=== PATIENT | male | born 1980 | race Caucasian/White ===

== ENCOUNTER → 2016-05-18 | Outpatient (CLI) | payer BC ==
[2016-05-18 17:19] LABS: HEMATOCRIT 47.9 % (42.0-52.0); HEMOGLOBIN 16.9 g/dL (14.0-18.0); MEAN CORPUSCULAR HEMOGLOBIN 29.5 PG (27-31); MEAN CORPUSCULAR HGB CONC 35.3 g/dL (33-37); RDW COEFFICIENT OF VARIATION 12.3 % (11.5-14.5); RED BLOOD COUNT 5.72 10^6/uL (4.70-6.10); WHITE BLOOD COUNT 11.81 10^3/uL (4.8-10.8)
[2016-05-18 17:30] LABS: ASPARTATE AMINO TRANSFERASE 30 IU/L (21-57); BILIRUBIN,TOTAL 0.9 mg/dL (0.3-1.2); BLOOD UREA NITROGEN 10 mg/dL (7-22); CALCIUM 9.9 mg/dL (8.7-10.7); CHLORIDE 103 meq/L (98-112); EST GLOMERULAR FILTRATION > 60 (>60 ml/min/1.73m(2)); GLUCOSE 59 mg/dL (78-110); POTASSIUM 4.5 meq/L (3.8-5.2); SODIUM 140 meq/L (135-145)
[2016-05-18 17:32] LABS: HEMOGLOBIN A1C 8.86 % (4.2-6.0); MEAN BLOOD GLUCOSE (CALC) 209.038 mg/dL
[2016-05-18 18:24] LABS: LDL CHOLESTEROL,CALCULATED 67.6 mg/dL
== END ==
LOC: MOB LAB 15:15
PROVIDERS: ATTEND Family Medicine
DX: E11.9 Type 2 diabetes mellitus without complications (principal); Z79.4 Long term (current) use of insulin; E78.00 Pure hypercholesterolemia, unspecified; I10 Essential (primary) hypertension; F17.210 Nicotine dependence, cigarettes, uncomplicated
CPT/HCPCS: 36415; 80053; 80061; 83036; 85027

== ENCOUNTER → 2016-05-24 | Outpatient (CLI) | payer BC ==
--- NOTE | 2016-05-24 13:00 | DI ---
TESTICULAR ULTRASOUND, 05/24/2016 10:27 AM Clinical History: Inguinal pain. Previous Exam: None. Scans are performed through both scrotal sacs in multiple projections using the high resolution linea r array probe. Color doppler ultrasound was also performed. Additional scans through the right inguin al ring were performed with the situp maneuver. Both testicles and the epididymis are normal. There is no hypervascularity identified. There is a rem nant of the Mullerian duct on the superior aspect of the left testicle and this is a normal variant. There is no varicocele or hydrocele. Scans through the right inguinal rim show no evidence of a herni a. Reading: Normal bilateral testicular ultrasound.
== END ==
LOC: US 10:21
PROVIDERS: ATTEND Family Medicine
DX: R10.84 Generalized abdominal pain (principal); F17.210 Nicotine dependence, cigarettes, uncomplicated
CPT/HCPCS: 76870

== ENCOUNTER → 2016-06-07 | Outpatient (CLI) | payer BC ==
--- NOTE | 2016-06-07 12:52 | DI ---
US ABDOMEN LIMITED,06/07/2016 7:46 AM: Clinical History: Right upper quadrant abdominal pain. Previous Exam: None at this facility. Findings: Multiple grayscale and color Doppler sonographic images are obtained through the right upper quadrant , and demonstrate a normal-appearing liver. The gallbladder is also normal with the gallbladder wall measuring 3 mm. The common bile duct measured 4 mm. The right kidney measured 11.3 cm in length without hydronephrosis nor nephrolithiasis. The pancreas is not well seen. Impression: Normal right upper quadrant ultrasound.
== END ==
LOC: US 07:42
PROVIDERS: ATTEND Family Medicine
DX: R10.11 Right upper quadrant pain (principal); F17.210 Nicotine dependence, cigarettes, uncomplicated
CPT/HCPCS: 76705

== ENCOUNTER → 2016-06-29 | Outpatient (CLI) | payer BC ==
--- NOTE | 2016-06-29 10:06 | DI ---
CT ABDOMEN SCAN WITHOUT AND WITH IV CONTRAST, 06/29/2016 7:48 AM : Clinical History: Generalized abdominal pain. Previous Exam: None at this facility. Scans are performed from the lower lung bases through the liver and kidneys without and with IV contr ast. Sagittal and coronal images are generated. 75 ml of Isovue 300 was injected IV. Low density oral barium contrast (Volumen - low density CT enterography oral contrast) was administered for all phase s of the exam. The lung bases are clear. The liver is normal. The gallbladder is grossly normal. There is no abnorma lity of the spleen, pancreas, and adrenal glands. Both kidneys are normal in size, shape, position an d contour. There is no hydronephrosis or hydroureter. No renal or ureteral calculi are present. There are no abnormal retrocrural or periaortic nodes. There is no ascites. READING: Normal CT abdomen scan without and with IV contrast. CT PELVIS SCAN WITHOUT AND WITH IV CONTRAST, 06/29/2016 7:48 AM: Clinical History: See above. Previous Exam: None at this facility. Scans are performed from just superior to the umbilicus to the symphysis pubis without and with IV co ntrast. This is the same bolus of IV contrast used for the CT scans of the abdomen. Scans through the lower abdomen and pelvis show no masses or abnormal fluid collections. There is no adenopathy. The appendix is normal. The small bowel, terminal ileum, and ileocecal valve are intact. The colon is also normal. There is a small umbilical hernia through which only mesenteric fat has he rniated. READING: Normal CT scan of the pelvis.
== END ==
LOC: CT 07:43
PROVIDERS: ATTEND Family Medicine
DX: R10.84 Generalized abdominal pain (principal)
CPT/HCPCS: 74178

== ENCOUNTER 2016-08-30 07:34 | Day surgery (SDC) | payer BC ==
[~2016-08-30 07:34] MED LIST: BUPivacaine Inj 0.5% PF (5mg/ml) 10ml vial ONE; LIDOCAINE 2% 20 MG/ML - 20 ML VIAL ONE; LIDOCAINE W/ SODIUM BICARB 0.5 ML SYR ONE; Lactated Ringers 1,000 ML PRIMARY IV ONE; MIDAZOLAM 5 MG/1 ML ONE; fentaNYL Inj 100 MCG/2 ML VIAL ONE
[2016-08-30] MEDS ORDERED: ceFAZolin Inj 2gm (Premix) 50 ML IV ONE (08:27)
--- NOTE | 2016-08-30 08:29 | MINORPROC ---
Outpatient History & Physical Chief Complaint: Left inguinal hernia. Mass left forearm Present Illness: Patient has had a hernia that is slowly getting bigger and bothersome. This is left inguinal area. He has a has a masses growing on his right forearm. Most likely reps into lipoma Past History: Insulin-dependent diabetes History: General: WNL, HEENT: WNL, Respiratory: WNL, Cardiovascular: WNL, Genitourinary: ABN (left inguinal hernia), Musculoskeletal: ABN (normal left forearm), Endocrine: ABN (ABDs) Physical Exam: Head/Neck: WNL, Chest/Lungs: WNL, Heart: WNL, Genital: ABN (left inguinal hernia), Extremities: ABN (4 cm mass left forearm) Home Medications: Home Medications Medication Instructions Recorded Confirmed Type Aspirin [Aspirin Ec] 1 tab ORAL QD tab 02/17/12 08/30/16 History Lisinopril 1 tab ORAL QD tab 02/17/12 08/30/16 History Loratadine [Tavist Nd] 1 tab ORAL QD tab 02/17/12 08/30/16 History Omeprazole 1 cap ORAL QD capsule 02/17/12 08/30/16 History Metoprolol Tartrate 1 tab PO BID #30 tab 12/20/14 08/30/16 History Guaifenesin 1 tab PO Q4H PRN tab 07/27/16 08/30/16 History Insulin Aspart [Novolog Flexpen] 100 unit SUBCUT AC unit 07/27/16 08/30/16 History Insulin Glargine SoloStar Inj 28 unit SQ DAILY 07/27/16 08/30/16 History [Lantus Solostar Inj] Pravastatin Sodium [Pravachol] 1 tab PO DAILY tab 07/27/16 08/30/16 History Sertraline HCl 1.5 tab PO DAILY tab 07/27/16 08/30/16 History Ibuprofen 1 tab PO BID tab 08/10/16 08/30/16 History Multivitamin [Multivitamins] 1 each PO DAILY 08/30/16 08/30/16 History Allergies/Adverse Reactions: Allergies Allergy/AdvReac Type Severity Reaction Status Date / Time No Known Drug Allergies Allergy NOT Verified 08/30/16 07:49 APPLICABLE Impression / Plan: Left inguinal hernia Lipoma left forearm Patient have repair of left inguinal hernia and excision of the mass a left forearm Transfusion: Transfusion Not Anticipated Anesthesia Plans: Sedation ASA Class: Class 3 : Severe Systemic Disease Under Control
[2016-08-30] MEDS ORDERED: HYDROcodone-APAP 7.5 MG-325 MG TABLET PO PRN (08:30)
[2016-08-30] MEDS ORDERED: MORPHINE SULFATE 2 MG/1 ML IVP PRN (08:30)
[2016-08-30] MEDS ORDERED: MAGNESIUM 400 MG/5 ML - 30 ML (MILK OF MAGNESIA) PO PRN (08:30)
[2016-08-30] MEDS ORDERED: NORMAL SALINE 10 ML SYRINGE FLUSH IVP PRN (08:30)
[2016-08-30] MEDS ORDERED: BUPivacaine Inj 0.5% PF (5mg/ml) 10ml vial ONE (08:56)
[2016-08-30] MEDS ORDERED: BUPivacaine Liposome/PF (Exparel) Inj 20ml vial INFIL ONE ×2 (09:20→09:26)
[2016-08-30] MEDS ORDERED: KETOROLAC 30 MG/1 ML VIAL ONE (09:47)
--- NOTE | 2016-08-30 09:51 | GEN.OPNOTE ---
Operative Note Surgery Date: 08/30/16 Preoperative Diagnosis: Left inguinal hernia. Subcutaneous mass left forearm Postoperative Diagnosis: Left inguinal hernia. 4 x 7 cm subcutaneous mass in the groin. 3 x 5 cm subcutaneous mass left forearm Procedure: Left inguinal herniorrhaphy with Prolene mesh. Excision of the 5 x 3 cm subcutaneous mass left forearm. Excision of a 7 x 4 cm subcutaneous mass left groin Surgeon: Joesph Hylton MD Anesthesia Provider: Db Guzman CRNA Anesthesia Type: Local, MAC Estimated Blood Loss (mL): 5 Fluids: 2 g of Ancef given. 18 mL of 0.5 Marcaine and 2% Xylocaine 50-50 mixture. 20 mL of Exoprel. Sedation per anesthesia please see anesthesia notes in EMR Pathology: Lipoma the groin and arm sent for pathology Indications: Patient is a left inguinal hernia and a mass in the left forearm it measures approximate 4 cm Findings: Patient had a direct and indirect hernia the left groin. He had a 7 x 4 cm subcutaneous mass. He had a 5 x 3 cm mass in the left forearm Operative Summary: Patient is brought in operant. Placed supine position. Timeout performed per protocol. Prepped draped sterile fashion. Infiltrated 0.5 Marcaine 2% Xylocaine 50-50 mixture for local anesthetic did a regional block. After adequate hemostasis skin incisions made in the left groin. Hemostased and left cautery. Local anesthetic was infiltrated for effect. It is finally found a large subcutaneous mass that appeared to be a lipoma. I dissected this out with electrocautery. The mass is actually in the way of the hernia repair therefore did need to be removed. It measures 7 x 4 cm on the back table. Hemostasis with electrocautery. I then infiltrated local anesthetic beneath the aponeurosis of external oblique. Made an incision on Prilosec external oblique grasped with hemostats and then opened the external oblique through the external ring and then above the internal ring. Special attention is made not to eat injury the ilioinguinal nerve that was identified. Spermatic cord was dissected off the for the ilioinguinal can now using dissection. Deborah drain was placed around it. I then dissected out the cord lipoma and also a indirect hernia sac both from reduce. Patient did have a direct hernia defect. I cut a piece of Prolene mesh to appropriate size and shape. Sewn the inferior edge of the mesh to the shelving edge ilioinguinal ligament using 0 Prolene continuous running suture. Keyholed the mesh to reconstruct the internal ring. Tacked this down to the shelving edge of the ilioinguinal canal. Superior aspect the mesh was sewn to the transversalis fascia. The medial aspect of the mesh was shown to the rectus sheath. Hall drain was then removed. Closed the external oblique fascia using 200 linkages running suture. I then infiltrated 20 mL of Exoprel for postoperative control. Closed the Luiz's fascia 2-0 Vicryl simple sutures. Skin reapproximated using 4-0 Monocryl continues running subcutaneous suture. Steri-Strips applied sterile dressings applied. We then prepped draped the arm. Timeout performed. Infiltrated local anesthetic for effect. Made a vertical incision along the long axis of this arm. Then diet bluntly dissected out lipoma that measured 5 x 3 cm. Hemostased and left cautery. Wound closed with a running subcutaneous stitch with 4-0 Vicryl. Steri-Strips applied sterile dressings applied. All counts were correct. Patient transferred recovery room in stable condition.
[2016-08-30] MEDS ORDERED: MORPHINE SULFATE 2 MG/1 ML ONE (10:13)
[2016-08-30 12:33] VITALS: RESP 23; TEMP 98.6
== END 2016-08-30 11:33 | disposition home or self-care (01) ==
LOC: SDSC 07:34
PROVIDERS: ATTEND Surgery
DX: K40.90 Unilateral inguinal hernia, without obstruction or gangrene, not specified as recurrent (principal); D17.22 Benign lipomatous neoplasm of skin and subcutaneous tissue of left arm; D17.24 Benign lipomatous neoplasm of skin and subcutaneous tissue of left leg
CPT/HCPCS: 25071; 27337; 49505; C9290; J0690; J1885; J2704; J3010; J2001; J2250; J2270; J3490; J7120

== ENCOUNTER 2016-08-31 00:30 | Emergency (ER) | payer BC ==
--- NOTE | 2016-08-31 01:01 | PDOC ---
Gen Adult / Medical Screen HPI - General Chief Complaint: General Medical Stated Complaint: pain to surgical site s/p inguinal hernia repair Date Seen by Provider: 08/31/16 Time Seen by Provider: 00:56 Source: POSITIVE: Patient Exam Limitations: POSITIVE: No limitations - History of Present Illness Initial Comments: Patient is a 36-year-old male who presents to the emergency department for postoperative pain. Patient had a left inguinal hernia, open, that was performed within 12 hours. Patient indicated this evening he got up to the bathroom and felt some dizziness and nauseousness. Patient did have pain at that site. Somewhat better when he laid down. Seemed to worsen he stands up and moves. Located in the left groin. No radiation. Moderate overall severity. Patient is a Diabetic he checked his blood sugar that was within normal limits. - Patient Home Medications Home Medications: Home Medications Aspirin [Aspirin EC] 1 tab ORAL QD tab 02/17/12 Lisinopril 1 tab ORAL QD tab 02/17/12 Loratadine [Tavist Nd] 1 tab ORAL QD tab 02/17/12 Omeprazole 1 cap ORAL QD capsule 02/17/12 Metoprolol Tartrate 1 tab PO BID #30 tab 12/20/14 Guaifenesin 1 tab PO Q4H PRN tab 07/27/16 Insulin Aspart [Novolog Flexpen] 100 unit SUBCUT AC unit 07/27/16 Insulin Glargine SoloStar Inj [Lantus SoloStar Inj] 28 unit SQ DAILY 07/27/16 Pravastatin Sodium [Pravachol] 1 tab PO DAILY tab 07/27/16 Sertraline HCl 1.5 tab PO DAILY tab 07/27/16 Ibuprofen 1 tab PO BID tab 08/10/16 HYDROcodone/APAP 7.5/325 Tab [[place] 7.5/325 Tab] 1 - 2 tab PO Q4H PRN #30 tab 08/30/16 Multivitamin [Multivitamins] 1 each PO DAILY 08/30/16 - Patient Allergies Allergies/Adverse Reactions: Allergies Allergy/AdvReac Type Severity Reaction Status Date / Time No Known Drug Allergies Allergy NOT Verified 08/31/16 00:48 APPLICABLE Past Medical History - heen HEENT History: Denies History Additional HEENT History: SINUS INFECTIONS Cardiovascular History: Hypertension Respiratory History: Denies History Gastrointestinal History: GERD Genitourinary History: Denies History Endocrine History: Type 1 Diabetes Musculoskeletal History: Denies History, Joint Pain Prosthesis or Implant: No Additional Musculoskeletal History: NECK PAIN Neurological History: Denies History Blood Disorders: Denies History Psychiatric History: Depression, PTSD History of Sexually Transmitted Diseases: No Cancer History: Denies History History of MDRO: No History of Other Communicable Diseases: Yes (VARICELLA) Alcohol Use: Rarely Substance Use Type: None Previous Surgical History: Yes Type / Date of Surgery: TONSILLECTOMY/EAR TUBES INFANT. Left open inguinal hernia repair. Anesthesia Reactions: No Malignant Hyperthermia: No Significant Family History: Cancer, Hypertension Past Medical History Reviewed: Reviewed - Changes Made ROS - Limitations ROS Limitations: No Limitations Constitution: REPORTS: Denies Symptoms Cardiovascular: REPORTS: Denies Cardiac Symptoms Respiratory: REPORTS: Denies Resp Symptoms Neurological: REPORTS: Denies Neuro Symptoms Gastrointestinal: REPORTS: Abdominal Pain, Nausea Endocrine: REPORTS: Denies Symptoms Musculoskeletal: REPORTS: Denies MS Symptoms Genitourinary: REPORTS: Denies Symptoms Eyes: REPORTS: Denies Symptoms ENT: REPORTS: Denies Symptoms Skin: REPORTS: Denies Skin Symptoms Lympathic: REPORTS: Denies Lympathic Symptoms Gen Adult/Medical Screen Exam - General Appearance General Appearance: POSITIVE: Alert, Cooperative, No Acute Distress - HEENT HEENT: POSITIVE: Head Inspection Nml, Oral/Dental Inspect. Nml - Pupils Pupil Size: 4 mm: Bilateral - Neck Neck: POSITIVE: Normal Inspection - Respiratory Respiratory: POSITIVE: No Respiratory Distress - Cardiovascular Cardiovascular: POSITIVE: Regular Rate & Rhythm, No Murmur, No Gallop - Abdomen Additional Abdominal Details: No tenderness to palpation of the abdomen. In the left inguinal region there is a surgical incision. The wound is clean and dry and intact. Steri-Strips are intact. No mass or significant swelling. Mild postoperative bruising. - Skin Skin: POSITIVE: Warm, Dry - Extremities Extremity: Non-Tender: (All Extremities) Gen Adlt/Medical Scrn Progress - Results Reviewed by me Lab Results:: Laboratory Results 08/31/16 Range/Units 01:05 WBC 10.17 (4.8-10.8) 10^3/uL RBC 4.86 (4.70-6.10) 10^6/uL Hgb 14.7 (14.0-18.0) g/dL Hct 41.7 L (42.0-52.0) % MCV 85.8 (80-90) FL MCH 30.2 (27-31) PG MCHC 35.3 (33-37) g/dL RDW Std Deviation 37.8 L (39-50) fL RDW Coeff of Lm 12.2 (11.5-14.5) % Plt Count 305 (140-350) 10*3/uL MPV 9.7 (7.4-12.2) FL Immature Gran % (Auto) 0.1 (0-5) % Neut % (Auto) 60.7 (50-80) % Lymph % (Auto) 26.1 (10-50) % Motley % (Auto) 7.6 (5-15) % Eos % (Auto) 4.8 (0-8) % Baso % (Auto) 0.7 (0-1) % Immature Gran # (Auto) 0.01 10*3/UL Neut # (Auto) 6.18 10*3/UL Lymph # (Auto) 2.65 10*3/uL Motley # (Auto) 0.77 (0.3-0.8) 10*3/UL Eos # (Auto) 0.49 10*3/UL Baso # (Auto) 0.07 10*3/UL WBC Morphology Comment Normal morphology (NORM) Plt Morphology Comment Normal morphology (NORM) RBC Morph Comment Normal morphology (NORM) Sodium 136 (135-145) meq/L Potassium 3.8 (3.8-5.2) meq/L Chloride 102 (98-112) meq/L Carbon Dioxide 26 (23-33) meq/L Anion Gap 8 (5-20) BUN 23 H (7-22) mg/dL Creatinine 1.2 (0.70-1.50) mg/dL Estimated GFR > 60 (>60 ml/min/1.73m(2)) BUN/Creatinine Ratio 19.16 (6-20) Glucose 142 H (78-110) mg/dL Calculated Osmolality 287.0 (267-292) mOsm/kg Calcium 8.7 (8.7-10.7) mg/dL - Patient's Progress MDM / ED Course: Cesar is a 36-year-old male who presents to the emergency department with pain after surgery. His vital signs are unremarkable and examination demonstrates a clean left inguinal incision wound. His pain is likely postoperative in nature. CBC demonstrates no significant anemia sent to suggest bleeding or significant hematoma. Recommended to continue to use his medications and follow-up with his surgeon as needed. Patient Care Time - Estimated PCT Patient Care Time (In Minutes): 25 Vital Signs - VS Reviewed Vital Signs Reviewed: Yes Discharge Clinical Impression: Postoperative pain, Postoperative abdominal pain Discharge Disposition: Discharged to Home Condition: Stable Additional Instructions: Thank you for coming to the emergency department. Please continue to take your pain medications as needed. Please follow-up with her general surgeon and return to the emergency department for any worsening symptoms. Follow Up With: RAMIRO CONKLIN [Primary Care Provider] -
[2016-08-31 01:18] LABS: BASOPHILS # (AUTO) 0.07 10*3/UL; BASOPHILS % (AUTO) 0.7 % (0-1); EOSINOPHILS # (AUTO) 0.49 10*3/UL; EOSINOPHILS % (AUTO) 4.8 % (0-8); HEMATOCRIT 41.7 % (42.0-52.0); HEMOGLOBIN 14.7 g/dL (14.0-18.0); LYMPHOCYTES # (AUTO) 2.65 10*3/uL; MEAN CORPUSCULAR HEMOGLOBIN 30.2 PG (27-31); MEAN CORPUSCULAR HGB CONC 35.3 g/dL (33-37); MEAN CORPUSCULAR VOLUME 85.8 FL (80-90); MEAN PLATELET VOLUME 9.7 FL (7.4-12.2); MONOCYTES # (AUTO) 0.77 10*3/UL (0.3-0.8); MONOCYTES % (AUTO) 7.6 % (5-15); NEUTROPHILS # (AUTO) 6.18 10*3/UL; NEUTROPHILS % (AUTO) 60.7 % (50-80); PLATELET MORPHOLOGY COMMENT NORMAL MORPHOLOGY (NORM); RED BLOOD COUNT 4.86 10^6/uL (4.70-6.10); WBC MORPHOLOGY COMMENT NORMAL MORPHOLOGY (NORM)
[2016-08-31 01:19] LABS: RBC MORPHOLOGY COMMENT NORMAL MORPHOLOGY (NORM)
[2016-08-31 01:22] LABS: BLOOD UREA NITROGEN 23 mg/dL (7-22); BUN/CREATININE RATIO 19.16 (6-20); CALCIUM 8.7 mg/dL (8.7-10.7); EST GLOMERULAR FILTRATION > 60 (>60 ml/min/1.73m(2))
[2016-08-31 01:31] VITALS: RESP 18; TEMP 97.4
== END 2016-08-31 01:39 | disposition home or self-care (01) ==
LOC: ER 00:30
DX: G89.18 Other acute postprocedural pain (principal); R42 Dizziness and giddiness; R11.0 Nausea; E10.9 Type 1 diabetes mellitus without complications; Z79.4 Long term (current) use of insulin
CPT/HCPCS: 80048; 85025; 99282